=== PATIENT | female | born 1950 | race Caucasian/White ===

== ENCOUNTER 2020-11-06 07:18 | Day surgery (SDC) | payer MEDICARE, BC ==
[~2020-11-06 07:18] MED LIST: Midazolam 1 MG/ML 2 ML SDV ONE; Propofol 200 MG/20 ML SDV ONE; fentaNYL 100 MCG/2 ML SDV ONE
[2020-11-06] MEDS ORDERED: Dextrose 5%-Lactated Ringers 1,000 ML IV SCH (07:45)
[2020-11-06] MEDS ORDERED: Meropenem 500 MG in Sodium Chloride 0.9% 50 ML IV ONE (08:30)
[2020-11-06 09:46] VITALS: PULSE 58
[2020-11-06 09:55] VITALS: BP 108/71
--- NOTE | 2020-11-12 17:35 | OR ---
DATE OF PROCEDURE: 11/06/2020 SURGEON: Ed Jimenez MD PREOPERATIVE DIAGNOSIS: Personal history of colon polyps and family history of colon carcinoma. POSTOPERATIVE DIAGNOSES: 1. Left colonic diverticulosis. 2. No recurrent polyp formation identified. PROCEDURE: Flexible colonoscopy. ANESTHESIA: IV sedation. INDICATION FOR PROCEDURE: This is a 70-year-old female presenting for followup screening colonoscopy. She has a personal history of colon polyps. No other family history of colon carcinoma. Plan will be to proceed with a colonoscopy with biopsies and a polypectomy as indicated. Potential risks including bleeding and perforation were discussed, and the patient wishes to proceed. DETAILS OF PROCEDURE: The patient was taken to the operating room, placed in a left lateral decubitus position. IV sedation was administered, after which the initial digital rectal exam was performed, it was unremarkable. Scope was passed into the rectum with retroflexion revealing uncomplicated hemorrhoidal columns. Scope was eventually passed to the level of the cecum. The prep was quite good with only small amount of liquid stool was present. The patient was noted to have some scattered left colonic diverticulosis, which was otherwise uncomplicated. Apart from that, there were no other areas of colitis. No polyps or signs of neoplasia. Scope was then withdrawn and the above findings reconfirmed, and the procedure then concluded. Given the personal family history as outlined above, the patient should be considered for a repeat colonoscopy in 5 years. Ed Jimenez MD /[id number]
== END 2020-11-06 10:12 | disposition home or self-care (01) ==
LOC: JP.SDS 07:18
PROVIDERS: ATTEND Surgery
DX: Z12.11 Encounter for screening for malignant neoplasm of colon (principal); K57.30 Diverticulosis of large intestine without perforation or abscess without bleeding; I48.91 Unspecified atrial fibrillation; E78.5 Hyperlipidemia, unspecified; K64.9 Unspecified hemorrhoids; Z86.010 Personal history of colon polyps; Z80.0 Family history of malignant neoplasm of digestive organs
CPT/HCPCS: J2185; J2250; J2704; J3010; J7121

== ENCOUNTER 2024-06-23 11:11 | Emergency (ER) | payer MEDICARE, BC ==
[2024-06-23 11:46] VITALS: BP 130/57; PULSE 72
[2024-06-23] MEDS: Sodium Chloride 0.9% 10 ML Syringe FLUSH PRN (12:22)
[2024-06-23] MEDS: HYDROmorphone 0.5 MG/0.5 ML Syringe IVPUSH ONE ×2 (12:22→13:09)
[2024-06-23 12:25] LABS: BASOPHILS PERCENT AUTO 0.1 % (0.1-1.3); EOSINOPHILS PERCENT AUTO 0.1 % (0.0-5.4); HEMATOCRIT 43.7 % (34.3-46.0); HEMOGLOBIN 15.3 g/dL (11.2-15.5); IMMATURE GRAN PERCENT AUTO 0.1 % (0.0-0.7); LYMPHOCYTES ABSOLUTE AUTO 1.22 K/uL (0.8-3.3); LYMPHOCYTES PERCENT AUTO 18.1 % (11.4-47.7); MEAN CORPUSCULAR HEMOGLOBIN 34.7 pg (31.6-35.5); MEAN CORPUSCULAR VOLUME 99.1 fL (81.4-99.0); MONOCYTES ABSOLUTE AUTO 0.38 K/uL (0.20-0.90); MONOCYTES PERCENT AUTO 5.6 % (3.3-12.6); PLATELET COUNT,PLT 199 K/uL (130-375); RED BLOOD CELL COUNT 4.41 M/uL (3.77-5.24); WHITE BLOOD CELL COUNT,WBC 6.7 K/uL (3.2-11.0)
[2024-06-23 12:27] LABS: BASOPHILS ABSOLUTE AUTO 0.01 K/uL (0.00-0.10); EOSINOPHILS ABSOLUTE AUTO 0.01 K/uL (0.00-0.40); IMMATURE GRAN ABSOLUTE AUTO 0.01 K/uL (0.00-0.23)
[2024-06-23 12:45] LABS: ALANINE AMINOTRANSFERASE,ALT 46 U/L (12-78); ALBUMIN 3.7 g/dL (3.4-5.0); ALKALINE PHOSPHATASE 74 U/L (46-116); ASPARTATE AMNIOTRANSFERASE,AST 28 U/L (15-37); BILIRUBIN TOTAL 0.6 mg/dL (0.2-1.0); BLOOD UREA NITROGEN,BUN 12 mg/dL (7-18); CALCIUM 9.1 mg/dL (8.5-10.1); CARBON DIOXIDE,CO2 27 mmol/L (21-32); CHLORIDE,CL 101 mmol/L (100-108); ESTIMATED GFR 59 mL/min (>60); GLUCOSE RANDOM 111 mg/dL (74-106); POTASSIUM,K 3.6 mmol/L (3.6-5.2); PROTEIN TOTAL,TP 7.3 g/dL (6.4-8.2); SODIUM,NA 139 mmol/L (140-148)
[2024-06-23 12:53] LABS: ANION GAP 14.6 mmol/L (5.0-14.0)
[2024-06-23] MEDS: Sodium Chloride 0.9% 60 ML IV SCH (13:35)
[2024-06-23] MEDS: Iopamidol 612 MG/ML 100 ML Bottle IV SCH (13:35)
[2024-06-23 13:51] LABS: APPEARANCE,URINE CLEAR (CLEAR); BILIRUBIN,URINE NEGATIVE (NEGATIVE); COLOR,URINE YELLOW (YELLOW); GLUCOSE,URINE NEGATIVE (NEGATIVE); KETONES,URINE TRACE mg/dL (NEGATIVE); LEUKOCYTE ESTERASE,URINE NEGATIVE (NEGATIVE); NITRITE,URINE NEGATIVE (NEGATIVE); OCCULT BLOOD,URINE TRACE-INTACT (NEGATIVE); PH,URINE 7.5 (5.0-8.0); PROTEIN,URINE NEGATIVE (NEGATIVE); UROBILINOGEN,URINE 0.2 EU/dL (0.2-1.0)
[2024-06-23 13:59] LABS: AMORPHOUS SEDIMENT,URINE RARE; BACTERIA,URINE RARE; EPITHELIAL CELLS,URINE RARE; MUCUS,URINE NOT SEEN; RBC,URINE 0-5 (0-5); WBC,URINE 0-5 (0-5)
== END 2024-06-23 15:29 | disposition home or self-care (01) ==
LOC: JP.ED 11:11
DX: K57.12 Diverticulitis of small intestine without perforation or abscess without bleeding (principal); I48.91 Unspecified atrial fibrillation; E78.00 Pure hypercholesterolemia, unspecified; I10 Essential (primary) hypertension; Z90.49 Acquired absence of other specified parts of digestive tract; Z79.899 Other long term (current) drug therapy; Z91.048 Other nonmedicinal substance allergy status
CPT/HCPCS: 36415; 74177; 80053; 81001; 83605; 85025; 96374; 99284; J1171; J3490; Q9967

== ENCOUNTER 2024-06-23 23:16 | Inpatient (IN) | payer MEDICARE, BC ==
[2024-06-24] MEDS: droPERidol 5 MG/2 ML SDV IVPUSH ONE (00:05)
[2024-06-24] MEDS: HYDROmorphone 0.5 MG/0.5 ML Syringe IVPUSH ONE ×2 (00:05→00:51)
[2024-06-24 00:15] LABS: BASOPHILS ABSOLUTE AUTO 0.02 K/uL (0.00-0.10); BASOPHILS PERCENT AUTO 0.2 % (0.1-1.3); EOSINOPHILS ABSOLUTE AUTO 0.01 K/uL (0.00-0.40); EOSINOPHILS PERCENT AUTO 0.1 % (0.0-5.4); HEMATOCRIT 41.9 % (34.3-46.0); HEMOGLOBIN 14.8 g/dL (11.2-15.5); IMMATURE GRAN ABSOLUTE AUTO 0.07 K/uL (0.00-0.23); IMMATURE GRAN PERCENT AUTO 0.7 % (0.0-0.7); LYMPHOCYTES ABSOLUTE AUTO 1.07 K/uL (0.8-3.3); LYMPHOCYTES PERCENT AUTO 10.3 % (11.4-47.7); MEAN CORPUSCULAR HEMOGLOBIN 34.7 pg (31.6-35.5); MEAN CORPUSCULAR HGB CONC 35.3 g/dL (31.6-35.5); MEAN CORPUSCULAR VOLUME 98.1 fL (81.4-99.0); MONOCYTES ABSOLUTE AUTO 0.67 K/uL (0.20-0.90); MONOCYTES PERCENT AUTO 6.5 % (3.3-12.6); NEUTROPHILS ABSOLUTE AUTO 8.52 K/uL (1.0-7.6); NEUTROPHILS PERCENT AUTO 82.2 % (40.0-78.1); PLATELET COUNT,PLT 189 K/uL (130-375); RED BLOOD CELL COUNT 4.27 M/uL (3.77-5.24); WHITE BLOOD CELL COUNT,WBC 10.4 K/uL (3.2-11.0)
[2024-06-24 00:31] LABS: ALANINE AMINOTRANSFERASE,ALT 41 U/L (12-78); ALBUMIN 3.5 g/dL (3.4-5.0); ALKALINE PHOSPHATASE 77 U/L (46-116); ANION GAP 13.6 mmol/L (5.0-14.0); ASPARTATE AMNIOTRANSFERASE,AST 36 U/L (15-37); BILIRUBIN TOTAL 0.9 mg/dL (0.2-1.0); BLOOD UREA NITROGEN,BUN 9 mg/dL (7-18); CALCIUM 9.1 mg/dL (8.5-10.1); CARBON DIOXIDE,CO2 27 mmol/L (21-32); CHLORIDE,CL 97 mmol/L (100-108); CREATININE 0.9 mg/dL (0.6-1.0); EST CRCL DRUG DOSING (CG) 52.12 mL/min; ESTIMATED GFR 68 mL/min (>60); GLUCOSE RANDOM 133 mg/dL (74-106); POTASSIUM,K 3.6 mmol/L (3.6-5.2); SODIUM,NA 134 mmol/L (140-148)
[2024-06-24] MEDS ORDERED: Naloxone 0.4 MG/ML SDV IVPUSH PRN (01:09)
[2024-06-24] MEDS ORDERED: Melatonin 3 MG Tab PO PRN (01:10)
[2024-06-24] MEDS: Sodium Chloride 0.9% 1,000 ML IV SCH (01:20)
[2024-06-24] MEDS: metroNIDAZOLE/Normal Saline 500 MG in Premix Bag 1 BAG IV SCH (01:26)
[2024-06-24] MEDS ORDERED: HYDROmorphone 1 MG/ML Syringe IVPUSH PRN (01:45)
[2024-06-24] MEDS ORDERED: Docusate Sodium 100 MG Cap PO PRN (01:57)
[2024-06-24] MEDS ORDERED: Bisacodyl 5 MG Tab PO PRN (01:57)
[2024-06-24] MEDS ORDERED: Ondansetron 4 MG/2 ML SDV IV PRN (01:57)
[2024-06-24] MEDS ORDERED: Ondansetron 4 MG Tab.DIS PO PRN (01:57)
[2024-06-24] MEDS: Pantoprazole 40 MG Vial IVPUSH SCH (02:09)
[2024-06-24] MEDS: Piperacillin/Tazobactam 4.5 GM in Sodium Chloride 0.9% 100 ML IV ONE (02:33)
[2024-06-24 03:56] LABS: APPEARANCE,URINE SLIGHTLY CLOUDY (CLEAR); BILIRUBIN,URINE NEGATIVE (NEGATIVE); COLOR,URINE YELLOW (YELLOW); GLUCOSE,URINE NEGATIVE (NEGATIVE); KETONES,URINE 15 mg/dL (NEGATIVE); LEUKOCYTE ESTERASE,URINE SMALL (NEGATIVE); NITRITE,URINE NEGATIVE (NEGATIVE); OCCULT BLOOD,URINE MODERATE (NEGATIVE); PROTEIN,URINE NEGATIVE (NEGATIVE); UROBILINOGEN,URINE 0.2 EU/dL (0.2-1.0)
[2024-06-24 04:01] LABS: AMORPHOUS SEDIMENT,URINE NOT SEEN; BACTERIA,URINE FEW; EPITHELIAL CELLS,URINE RARE; MUCUS,URINE NOT SEEN
[2024-06-24] MEDS: Piperacillin/Tazobactam 4.5 GM in Sodium Chloride 0.9% 100 ML IV SCH (05:24)
[2024-06-24] MEDS ORDERED: Piperacillin/Tazobactam 3.375 GM in Sodium Chloride 0.9% 50 ML IV SCH (08:15)
[2024-06-24] MEDS: Acetaminophen 325 MG Tab PO PRN (08:32)
[2024-06-24] MEDS: oxyCODONE 5 MG Tab PO PRN (08:33)
[2024-06-24] MEDS: Rosuvastatin 5 MG Tab PO SCH (08:36)
[2024-06-24] MEDS: Apixaban 5 MG Tab PO SCH (08:36)
[2024-06-24] MEDS: Hydrochlorothiazide 12.5 MG Cap PO SCH (08:38)
[2024-06-24] MEDS: Calcium Carbonate/Vitamin D3 1500 MG-400 Units Tab PO SCH (08:39)
[2024-06-24] MEDS ORDERED: Non-Formulary Medication 1 Each (Cholecalciferol (Vitamin D3) [Vitamin D3] 400 UNIT Capsul PO SCH (09:00)
[2024-06-24] MEDS: Metoprolol Succinate 25 MG Tab.ER PO SCH (10:05)
[2024-06-24] MEDS: Piperacillin/Tazobactam/Dext 4.5 GM in Premix Bag 1 BAG IV SCH (13:16)
[2024-06-24] MEDS: Pantoprazole 40 MG Tab.CR PO SCH (21:05)
[2024-06-25 05:42] LABS: HEMATOCRIT 39.3 % (34.3-46.0); HEMOGLOBIN 13.9 g/dL (11.2-15.5); MEAN CORPUSCULAR HEMOGLOBIN 34.3 pg (31.6-35.5); MEAN CORPUSCULAR HGB CONC 35.4 g/dL (31.6-35.5); RED BLOOD CELL COUNT 4.05 M/uL (3.77-5.24); WHITE BLOOD CELL COUNT,WBC 9.1 K/uL (3.2-11.0)
[2024-06-25 06:00] LABS: CALCIUM 8.7 mg/dL (8.5-10.1); CREATININE 0.8 mg/dL (0.6-1.0); EST CRCL DRUG DOSING (CG) 58.63 mL/min
[2024-06-25] MEDS ORDERED: Sodium Chloride 0.9% 10 ML Syringe IV PRN (08:23)
[2024-06-25] MEDS: Potassium Chloride 20 MEQ Tab.ER PO ONE (08:41)
[2024-06-25 11:32] VITALS: BP 112/56; PULSE 61
== END 2024-06-25 16:00 | disposition home or self-care (01) | DRG 392 ==
LOC: JP.ED 23:16 → JP.MS 06-24 00:54
PROVIDERS: ADMIT Nurse Practitioner; ATTEND Internal Medicine
DX: K57.12 Diverticulitis of small intestine without perforation or abscess without bleeding (principal); K86.2 Cyst of pancreas; I34.1 Nonrheumatic mitral (valve) prolapse; I48.91 Unspecified atrial fibrillation; E78.00 Pure hypercholesterolemia, unspecified; I10 Essential (primary) hypertension; M06.9 Rheumatoid arthritis, unspecified; Z91.09 Other allergy status, other than to drugs and biological substances; H54.7 Unspecified visual loss; Z96.659 Presence of unspecified artificial knee joint; Z79.899 Other long term (current) drug therapy; Z79.01 Long term (current) use of anticoagulants; Z79.2 Long term (current) use of antibiotics; Z86.0100 Personal history of colon polyps, unspecified; Z87.442 Personal history of urinary calculi; Z87.81 Personal history of (healed) traumatic fracture; Z90.89 Acquired absence of other organs; Z98.49 Cataract extraction status, unspecified eye; Z90.49 Acquired absence of other specified parts of digestive tract; Z90.710 Acquired absence of both cervix and uterus; Z90.722 Acquired absence of ovaries, bilateral; Z90.79 Acquired absence of other genital organ(s); Z98.890 Other specified postprocedural states
CPT/HCPCS: 36415 ×2; 74018 ×2; 80053; 83605; 83690; 85025; 96374; 96375; 96376; 99285; J1171 ×2; J1790; 74181; 74181-26; 80048; 81001; 85027; 99222; 99232; 99238; A9270-GY; J1836; J2470; J2543; J3490; J7030

== ENCOUNTER 2024-09-26 07:51 | Inpatient (IN) | payer MEDICARE, BC ==
[2024-09-26 08:18] LABS: MEAN CORPUSCULAR VOLUME 99.8 fL (81.4-99.0); RED BLOOD CELL COUNT 4.71 M/uL (3.77-5.24); WHITE BLOOD CELL COUNT,WBC 5.3 K/uL (3.2-11.0)
[2024-09-26] MEDS ORDERED: Midazolam 1 MG/ML 2 ML SDV ONE (08:25)
[2024-09-26] MEDS ORDERED: Propofol 200 MG/20 ML SDV ONE ×2 (08:25→11:19)
[2024-09-26] MEDS ORDERED: fentaNYL 100 MCG/2 ML SDV ONE (08:25)
[2024-09-26 08:39] LABS: A/G RATIO 1.1 (1.2-2.2); ALANINE AMINOTRANSFERASE,ALT 22 U/L (12-78); ALBUMIN 3.9 g/dL (3.4-5.0); ALKALINE PHOSPHATASE 60 U/L (46-116); ASPARTATE AMNIOTRANSFERASE,AST 22 U/L (15-37); BILIRUBIN TOTAL 0.9 mg/dL (0.2-1.0); BLOOD UREA NITROGEN,BUN 9 mg/dL (7-18); CALCIUM 9.1 mg/dL (8.5-10.1); CARBON DIOXIDE,CO2 30 mmol/L (21-32); CHLORIDE,CL 101 mmol/L (100-108); ESTIMATED GFR 59 mL/min (>60); GLUCOSE RANDOM 94 mg/dL (74-106); POTASSIUM,K 3.6 mmol/L (3.6-5.2); PROTEIN TOTAL,TP 7.5 g/dL (6.4-8.2); SODIUM,NA 140 mmol/L (140-148)
[2024-09-26] MEDS: Nozin Nasal Sanitizer NASBOTH SCH ×2 (08:58→20:59)
[2024-09-26] MEDS ORDERED: oxyCODONE 5 MG Tab PO PRN (08:58)
[2024-09-26] MEDS ORDERED: Morphine 2 MG/ML SYRINGE IV PRN (08:59)
[2024-09-26] MEDS ORDERED: Magnesium Hydroxide 400 MG/5 ML Susp 30 ML Cup PO PRN (08:59)
[2024-09-26] MEDS ORDERED: Docusate Sodium 100 MG Cap PO PRN (08:59)
[2024-09-26] MEDS ORDERED: AMOXICILLIN 500 MG PO SCH (09:00)
[2024-09-26] MEDS: Lactated Ringers 1,000 ML IV SCH (09:00)
[2024-09-26] MEDS ORDERED: Bupivacaine 0.5% 30 ML SDV ONE (09:18)
[2024-09-26] MEDS ORDERED: Bupivacaine 0.5% 50 ML MDV ONE (09:18)
[2024-09-26] MEDS: ceFAZolin 2 GM in Premix Bag 1 BAG IV ONE (10:50)
[2024-09-26] MEDS ORDERED: Lactated Ringers 1,000 ML ONE (11:15)
[2024-09-26] MEDS ORDERED: Glycopyrrolate 0.2 MG/ML 5 ML MDV ONE (11:28)
[2024-09-26] MEDS: Clindamycin in 0.9 % Sod Chlor 900 MG in Premix Bag 1 BAG IV ONE (12:03)
[2024-09-26] MEDS: Acetaminophen 325 MG Tab PO SCH (13:53)
[2024-09-26] MEDS: oxyCODONE 5 MG Tab PO PRN (13:54)
[2024-09-26] MEDS: Sodium Chloride 0.9% 1,000 ML IV SCH (16:26)
[2024-09-26] MEDS: ceFAZolin 2 GM in Premix Bag 1 BAG IV SCH (16:59)
[2024-09-26] MEDS: Metoprolol Succinate 25 MG Tab.ER PO SCH (21:00)
[2024-09-26] MEDS: Calcium Carbonate 500 MG Tab.Chew PO SCH (21:00)
[2024-09-27 05:59] LABS: HEMATOCRIT 36.8 % (34.3-46.0); HEMOGLOBIN 12.9 g/dL (11.2-15.5); MEAN CORPUSCULAR HEMOGLOBIN 34.5 pg (31.6-35.5); MEAN CORPUSCULAR HGB CONC 35.1 g/dL (31.6-35.5); MEAN CORPUSCULAR VOLUME 98.4 fL (81.4-99.0); RED BLOOD CELL COUNT 3.74 M/uL (3.77-5.24); WHITE BLOOD CELL COUNT,WBC 8.6 K/uL (3.2-11.0)
[2024-09-27] MEDS: Ondansetron 4 MG/2 ML SDV IVPUSH PRN (06:51)
[2024-09-27] MEDS: Rosuvastatin 10 MG Tab PO SCH (08:09)
[2024-09-27] MEDS: Apixaban 5 MG Tab PO SCH (08:11)
[2024-09-27] MEDS: Hydrochlorothiazide 12.5 MG Cap PO SCH (08:15)
[2024-09-27] MEDS: Metoclopramide 10 MG/2 ML SDV IVPUSH PRN (10:37)
[2024-09-27] MEDS: Cholecalciferol (Vitamin D3) 25 MCG Tab PO SCH (11:27)
[2024-09-27] MEDS: Ketorolac 15 MG/ML SDV IVPUSH PRN (20:07)
[2024-09-28] MEDS: Sodium Chloride 0.9% 500 ML IV ONE (02:29)
[2024-09-28] MEDS: Alendronate 70 MG Tab PO SCH (08:00)
[2024-09-28 12:16] VITALS: PULSE 69
[2024-09-28 12:18] VITALS: BP 123/53
== END 2024-09-28 12:35 | disposition home or self-care (01) | DRG 469 ==
LOC: JP.SDS 07:51 → JP.2SS 08:59 → JP.SDS 09-27 13:44
PROVIDERS: ADMIT Specialist; ATTEND Specialist
PROC: 0SRB01A Replacement of Left Hip Joint with Metal Synthetic Substitute, Uncemented, Open Approach (ICD-10-PCS; principal; 2024-09-26 11:00)
DX: M16.12 Unilateral primary osteoarthritis, left hip (principal); J69.0 Pneumonitis due to inhalation of food and vomit; M06.9 Rheumatoid arthritis, unspecified; E78.5 Hyperlipidemia, unspecified; I95.81 Postprocedural hypotension
CPT/HCPCS: 36415; 71045; 71045-26; 72170; 72170-26; 80053; 85027; 97110-GP; 97116-GP; 97161-GP; 97165-GO; 97530-GP; 97535-GO; 99232; A9270-GY; C1713; C1776; J0665; J0690; J0737; J1596; J1885; J2250; J2405; J2704; J2765; J3010; J3490; J7030; J7040; J7120

== ENCOUNTER 2025-02-04 11:39 | Emergency (ER) | payer MEDICARE, BC ==
[2025-02-04 12:42] LABS: BASOPHILS PERCENT AUTO 0.4 % (0.1-1.3); EOSINOPHILS PERCENT AUTO 0.2 % (0.0-5.4); HEMATOCRIT 44.3 % (34.3-46.0); IMMATURE GRAN PERCENT AUTO 0.4 % (0.0-0.7); LYMPHOCYTES ABSOLUTE AUTO 1.37 K/uL (0.8-3.3); LYMPHOCYTES PERCENT AUTO 26.9 % (11.4-47.7); MEAN CORPUSCULAR HEMOGLOBIN 33.9 pg (31.6-35.5); MEAN CORPUSCULAR HGB CONC 33.9 g/dL (31.6-35.5); MONOCYTES ABSOLUTE AUTO 0.33 K/uL (0.20-0.90); MONOCYTES PERCENT AUTO 6.5 % (3.3-12.6); NEUTROPHILS ABSOLUTE AUTO 3.34 K/uL (1.0-7.6); NEUTROPHILS PERCENT AUTO 65.6 % (40.0-78.1); PLATELET COUNT,PLT 193 K/uL (130-375); RED BLOOD CELL COUNT 4.43 M/uL (3.77-5.24); WHITE BLOOD CELL COUNT,WBC 5.1 K/uL (3.2-11.0)
[2025-02-04 12:43] LABS: BASOPHILS ABSOLUTE AUTO 0.02 K/uL (0.00-0.10); EOSINOPHILS ABSOLUTE AUTO 0.01 K/uL (0.00-0.40); IMMATURE GRAN ABSOLUTE AUTO 0.02 K/uL (0.00-0.23)
[2025-02-04 12:53] LABS: A/G RATIO 1.1 (1.2-2.2); ALANINE AMINOTRANSFERASE,ALT 25 U/L (12-78); ALBUMIN 3.7 g/dL (3.4-5.0); ALKALINE PHOSPHATASE 76 U/L (46-116); ASPARTATE AMNIOTRANSFERASE,AST 16 U/L (15-37); BILIRUBIN TOTAL 0.7 mg/dL (0.2-1.0); BLOOD UREA NITROGEN,BUN 13 mg/dL (7-18); CALCIUM 9.3 mg/dL (8.5-10.1); CARBON DIOXIDE,CO2 25 mmol/L (21-32); CHLORIDE,CL 102 mmol/L (100-108); CREATININE 0.9 mg/dL (0.6-1.0); EST CRCL DRUG DOSING (CG) 51.34 mL/min; ESTIMATED GFR 67 mL/min (>60); GLUCOSE RANDOM 135 mg/dL (74-106); POTASSIUM,K 3.6 mmol/L (3.6-5.2); PROTEIN TOTAL,TP 7.2 g/dL (6.4-8.2); SODIUM,NA 138 mmol/L (140-148)
[2025-02-04 12:54] LABS: ANION GAP 14.6 mmol/L (5.0-14.0); C-REACTIVE PROTEIN < 0.50 mg/dL (<0.50)
[2025-02-04 12:55] LABS: LACTIC ACID 1.4 mmol/L (0.4-2.0)
[2025-02-04] MEDS ORDERED: Sodium Chloride 0.9% 80 ML IV ONE (12:55)
[2025-02-04] MEDS ORDERED: Iopamidol 612 MG/ML 100 ML Bottle IV ONE (12:55)
[2025-02-04] MEDS ORDERED: Sodium Chloride 0.9% 10 ML Syringe FLUSH ONE (12:55)
[2025-02-04] MEDS: Sodium Chloride 0.9% 1,000 ML IV ONE (13:07)
[2025-02-04 14:25] VITALS: BP 122/50; PULSE 62
== END 2025-02-04 14:09 | disposition home or self-care (01) ==
LOC: JP.ED 11:39
DX: K43.9 Ventral hernia without obstruction or gangrene (principal); I10 Essential (primary) hypertension; E78.00 Pure hypercholesterolemia, unspecified; I48.91 Unspecified atrial fibrillation; Z86.16 Personal history of COVID-19; Z90.710 Acquired absence of both cervix and uterus; Z79.01 Long term (current) use of anticoagulants; Z79.899 Other long term (current) drug therapy; Z91.09 Other allergy status, other than to drugs and biological substances
CPT/HCPCS: 36415; 74177; 80053; 83605; 83690; 85025; 86140; 99284; J7030

== ENCOUNTER 2025-03-05 10:19 | Day surgery (SDC) | payer MEDICARE, BC ==
[2025-03-05] MEDS: Lactated Ringers 1,000 ML IV SCH (11:06)
[2025-03-05 11:12] LABS: PLATELET COUNT,PLT 206.0 K/uL (130-375); RED BLOOD CELL COUNT 4.14 M/uL (3.77-5.24); WHITE BLOOD CELL COUNT,WBC 5.6 K/uL (3.2-11.0)
[2025-03-05] MEDS ORDERED: Succinylcholine 200 MG/10 ML MDV ONE (11:16)
[2025-03-05] MEDS ORDERED: Glycopyrrolate 0.2 MG/ML 5 ML MDV ONE (11:16)
[2025-03-05] MEDS ORDERED: Dexamethasone 4 MG/ML SDV ONE (11:16)
[2025-03-05] MEDS ORDERED: Ondansetron 4 MG/2 ML SDV ONE (11:16)
[2025-03-05] MEDS ORDERED: Propofol 200 MG/20 ML SDV ONE (11:16)
[2025-03-05] MEDS ORDERED: fentaNYL 250 MCG/5 ML SDV ONE (11:19)
[2025-03-05 11:35] LABS: A/G RATIO 1.0 (1.2-2.2); ALANINE AMINOTRANSFERASE,ALT 25 U/L (12-78); ASPARTATE AMNIOTRANSFERASE,AST 16 U/L (15-37); BILIRUBIN TOTAL 0.7 mg/dL (0.2-1.0); BLOOD UREA NITROGEN,BUN 11 mg/dL (7-18); CARBON DIOXIDE,CO2 29 mmol/L (21-32); CHLORIDE,CL 106 mmol/L (100-108); CREATININE 0.7 mg/dL (0.6-1.0); EST CRCL DRUG DOSING (CG) 67.29 mL/min; ESTIMATED GFR 91 mL/min (>60); GLUCOSE RANDOM 92 mg/dL (74-106); POTASSIUM,K 3.8 mmol/L (3.6-5.2); PROTEIN TOTAL,TP 6.7 g/dL (6.4-8.2); SODIUM,NA 142 mmol/L (140-148)
[2025-03-05] MEDS ORDERED: Lactated Ringers 1,000 ML ONE (13:58)
[2025-03-05] MEDS: Bupivacaine 0.25%/EPINEPHrine 1:200,000 30 ML SDV ONE (14:33)
[2025-03-05 16:23] VITALS: BP 123/61; PULSE 53
== END 2025-03-05 16:24 | disposition home or self-care (01) ==
LOC: JP.SDS 10:19
PROVIDERS: ATTEND Surgery
DX: K43.9 Ventral hernia without obstruction or gangrene (principal); I10 Essential (primary) hypertension; I48.0 Paroxysmal atrial fibrillation
CPT/HCPCS: 00832; 36415; 49591; 80053; 85027; A9270; J0330; J0690; J1100; J1596; J2405; J2704; J2710; J3010; J7120; J3490